=== PATIENT | female | born 1960 | race Caucasian/White ===

== ENCOUNTER 2023-04-22 00:37 | Emergency (ER) | payer MEDICARE, OTHER ==
[~2023-04-22] VITALS: Ht 162.5 cm; Wt 47.0 kg
[~2023-04-22 00:37] MED LIST: ALPR.5T PO; HYDR1TAB PO; KETO-22 PO; ONDAN4ODT PO; PNT40TEC PO; PROP10TA8 PO; SRTR100T PO
[2023-04-22 00:45] VITALS: BP 205/127
[2023-04-22 01:12] LABS: BASOPHILS % (AUTO) 1 % (0-10); EOSINOPHILS # (AUTO) 0.4 10^3/uL (0.0-0.3); EOSINOPHILS % (AUTO) 5 % (0-10); HEMATOCRIT 47 % (35-52); LYMPHOCYTES # (AUTO) 2.6 10^3/uL (1.0-4.0); LYMPHOCYTES % (AUTO) 33 % (12-44); MEAN CORPUSCULAR HEMOGLOBIN 30 pg (25-34); MEAN CORPUSCULAR HGB CONC 34 g/dL (32-36); MEAN CORPUSCULAR VOLUME 89 fL (80-99); MEAN PLATELET VOLUME 9.1 fL (9.0-12.2); MONOCYTES # (AUTO) 0.7 10^3/uL (0.0-1.0); MONOCYTES % (AUTO) 9 % (0-12); NEUTROPHILS # (AUTO) 4.2 10^3/uL (1.8-7.8); NEUTROPHILS % (AUTO) 53 % (42-75); PLATELET COUNT 276 10^3/uL (130-400); WHITE BLOOD COUNT 7.9 10^3/uL (4.3-11.0)
--- NOTE | 2023-04-22 01:18 | ED General ---
General Chief Complaint: Cardiac/General Problems Stated Complaint: HIGH BLOOD PRESSURE 226/106 Nursing Triage Note: Pt presents with c/o of HTN and not feeling well for approx 1 week. Pt states she's been having decreased appetite, diarrhea and fatigue. Pt reports feeling anxious tonight and having panic attacks over the past week. Source of Information: Patient (SOMEWHAT LIMITED/VAGUE HISTORIAN) History of Present Illness Date Seen by Provider: Apr 22, 2023 Time Seen by Provider: 00:54 Initial Comments PT ARRIVES VIA POV FROM HOME WITH DAUGHTER PT STATES SHE "JUST HASN'T FELT GOOD FOR THE LAST WEEK" STATES SHE HAS HAD ALOT OF ANXIETY LATELY AND HAVING PANIC ATTACKS LATELY ALSO C/O GENERALIZED FATIGUE, DECREASED APPETITE AND SOME DIARRHEA DAUGHTER WAS THERE TONIGHT, AND CHECKED HER BP JUST PRIOR TO ARRIVAL AND READINGS WERE 222/110 AND 226/106, SO CAME STRAIGHT HERE PT HAS NOT CHECKED HER BP AT ANY TIME UNTIL JUST PRIOR TO ARRIVAL PT IS SUPPOSED TO BE ON UNKNOWN BLOOD PRESSURE MEDICATION, BUT HAS NOT TAKEN ANY IN OVER A YEAR, AND HAS NOT SEEN A DR IN OVER A YEAR--STATES "NO INSURANCE" --PT GOES TO [facility]. DAUGHTER MADE HER COME HERE TONIGHT--PT STATES SHE DOES NOT LIKE GOING TO THE DR. HAS ALSO BEEN ON ANXIETY MEDICATIONS IN THE PAST, BUT ALSO NOT TAKEN ANY FOR OVER A YEAR NO CHEST PAIN NO PALPITATIONS NO SHORTNESS OF BREATH NO DIZZINESS NO SYNCOPE NO NAUSEA/VOMITING NO NEW VISION CHANGES--HAS GLAUCOMA NO PARESTHESIAS OR MOTOR DEFICITS NO HEADACHE NO SWELLING IN LEGS/FEET OR PAIN IN CALVES PT IS NOT COVID OR FLU VACCINATED NO KNOWN SICK CONTACTS PCP: DR. CARIDAD PICKARD AT [facility] Allergies and Home Medications Allergies Coded Allergies: prochlorperazine (Verified Allergy, Severe, FACIAL PARALYSIS, "EYES ROLL BACK IN HEAD", 11/13/05) Patient Home Medication List Home Medication List Reviewed: Yes Alprazolam (Xanax) 0.5 Mg Tablet, 0.5 MG PO HS, (Reported) Entered as Reported by: GRACE MONGE on 09/26/11 2105 Hydrocodone Bit/Acetaminophen (Vicodin 5-500 Tablet) 1 Each Tablet, 1-2 EACH PO Q4HR PRN, (Reported) Entered as Reported by: SARITHA RIVERA on 09/28/11 0939 Hydroxyzine Pamoate (Hydroxyzine Pamoate) 50 Mg Capsule, 50 MG PO Q6H PRN for ANXIETY Prescribed by: BETO MAGAÑA on 04/22/23 0342 Ketorolac Tromethamine (Toradol) 10 Mg Tablet, 10 MG PO Q6H PRN Prescribed by: BETO MAGAÑA on 09/26/112337 Ondansetron Hcl (Zofran Oral Dissolve) 4 Mg Tab, 4 MG PO Q4H Prescribed by: BETO MAGAÑA on 09/26/112337 Pantoprazole Sodium (Protonix) 40 Mg Tablet.dr, 1 TAB PO DAILY Prescribed by: BETO MAGAÑA on 09/26/112337 Propranolol Hcl (Inderal) 10 Mg Tablet, 30 MG PO DAILY, (Reported) Entered as Reported by: GRACE MONGE on 09/26/112104 Sertraline Hcl (Zoloft) 100 Mg Tab, 100 MG PO DAILY, (Reported) Entered as Reported by: GRACE MONGE on 09/26/112104 Review of Systems Review of Systems Constitutional: see HPI EENTM: no symptoms reported Respiratory: no symptoms reported Cardiovascular: see HPI; No chest pain, No edema, No palpitations, No syncope Gastrointestinal: see HPI; No abdominal pain; diarrhea, loss of appetite; No nausea, No vomiting Genitourinary: no symptoms reported Musculoskeletal: no symptoms reported Skin: no symptoms reported Psychiatric/Neurological: See HPI Hematologic/Lymphatic: No Symptoms Reported Immunological/Allergic: no symptoms reported Past Qadlcea-Qfvlvk-Drnqjo Hx Patient Social History Tobacco Use?: Yes Tobacco type used: Cigarettes Smoking Status: Current Everyday Smoker Use of E-Cig and/or Vaping dev: No Substance use?: No Alcohol Use?: No Immunizations Up To Date Influenza Vaccine Up-to-Date: No; Not Current Past Medical History Surgeries: Yes (BACK SURGERY 2006-LUMBAR LAMINECTOMY/DISCECTOMY) Appendectomy, Gallbladder, Hysterectomy, Oophorectomy, Orthopedic Respiratory: No Cardiac: Yes Hypertension Neurological: No 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, 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 Genitourinary: No Gastrointestinal: No Musculoskeletal: Yes Chronic Back Pain Endocrine: No HEENT: Yes Glaucoma Loss of Vision: Bilateral Psychosocial: Yes Sleep Difficulties, Anxiety Integumentary: No Blood Disorders: No Family Medical History SOCIAL HISTORY: -SMOKES 1 PPD -DENIES ETOH USE -DENIES DRUG USE PAST SURGICAL HISTORY: -CHOLECYSTECTOMY -APPENDECTOMY -HYSTERECTOMY / BILATERAL SALPINGO-OOPHORECTOMY -BACK SURGERY WITH LUMBAR DISCECTOMY AND DEONTE LAMINECTOMY 2005 Physical Exam Vital Signs Vital Signs - First Documented 04/22/23 00:45 Temp 36.6 Pulse 64 Resp 16 B/P (MAP) 205/127 (153) Capillary Refill : Less Than 3 Seconds Height, Weight, BMI Height: '" Weight: lbs. oz. 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 Norm as Tested Skin: Normal Color, Warm/Dry Progress/Results/Core Measures Suspected Sepsis SIRS Temperature: Pulse: 64 Respiratory Rate: 16 Laboratory Tests 04/22/23 01:02: White Blood Count 7.9 Blood Pressure 205 /127 Mean: 153 Laboratory Tests 04/22/23 01:02: Creatinine 0.87, INR Comment 1.0, Platelet Count 276, Total Bilirubin 0.7 Results/Orders Lab Results Laboratory Tests Test 04/22/23 01:02 04/22/23 01:15 Range/Units White Blood Count 7.9 4.3-11.0 10^3/uL Red Blood Count 5.32 H 3.80-5.11 10^6/uL Hemoglobin 16.0 11.5-16.0 g/dL Hematocrit 47 35-52 % Mean Corpuscular Volume 89 80-99 fL Mean Corpuscular Hemoglobin 30 25-34 pg Mean Corpuscular Hemoglobin Concent 34 32-36 g/dL Red Cell Distribution Width 11.9 10.0-14.5 % Platelet Count 276 130-400 10^3/uL Mean Platelet Volume 9.1 9.0-12.2 fL Immature Granulocyte % (Auto) 0 % Neutrophils (%) (Auto) 53 42-75 % Lymphocytes (%) (Auto) 33 12-44 % Monocytes (%) (Auto) 9 0-12 % Eosinophils (%) (Auto) 5 0-10 % Basophils (%) (Auto) 1 0-10 % Neutrophils # (Auto) 4.2 1.8-7.8 10^3/uL Lymphocytes # (Auto) 2.6 1.0-4.0 10^3/uL Monocytes # (Auto) 0.7 0.0-1.0 10^3/uL Eosinophils # (Auto) 0.4 H 0.0-0.3 10^3/uL Basophils # (Auto) 0.0 0.0-0.1 10^3/uL Immature Granulocyte # (Auto) 0.0 0.0-0.1 10^3/uL Prothrombin Time 13.2 12.2-14.7 SEC INR Comment 1.0 0.8-1.4 Activated Partial Thromboplast Time 20 L 24-35 SEC D-Dimer 1.84 H 0.00-0.49 UG/ML Sodium Level 138 135-145 MMOL/L Potassium Level 3.4 L 3.6-5.0 MMOL/L Chloride Level 102 98-107 MMOL/L Carbon Dioxide Level 23 21-32 MMOL/L Anion Gap 13 5-14 MMOL/L Blood Urea Nitrogen 13 7-18 MG/DL Creatinine 0.87 0.60-1.30 MG/DL Estimat Glomerular Filtration Rate 74 BUN/Creatinine Ratio 15 Glucose Level 102 70-105 MG/DL Calcium Level 9.9 8.5-10.1 MG/DL Corrected Calcium 8.5-10.1 MG/DL Magnesium Level 2.2 1.6-2.4 MG/DL Total Bilirubin 0.7 0.1-1.0 MG/DL Aspartate Amino Transf (AST/SGOT) 15 5-34 U/L Alanine Aminotransferase (ALT/SGPT) 17 0-55 U/L Alkaline Phosphatase 92 40-136 U/L Troponin I < 0.028 <0.028 NG/ML B-Type Natriuretic Peptide 121.1 H <100.0 PG/ML Total Protein 8.2 6.4-8.2 GM/DL Albumin 4.6 H 3.2-4.5 GM/DL TSH [place] Testing 1.09 0.35-4.94 UIU/ML Influenza Type A (RT-PCR) Not Detected Not Detecte Influenza Type B (RT-PCR) Not Detected Not Detecte SARS-CoV-2 RNA (RT-PCR) Detected H Not Detecte My Orders Orders - BETO MAGAÑA DO Ed Iv/Invasive Line Start (04/22/23 01:02) Ekg Tracing (04/22/23 01:02) Monitor-Rhythm Ecg Trace Only (04/22/23 01:02) Bnp Lander (04/22/23 01:02) Cbc And Automated Diff (04/22/23 01:02) Comprehensive Metabolic Panel (04/22/23 01:02) Magnesium (04/22/23 01:02) Protime With Inr (04/22/23 01:02) Partial Thromboplastin Time (04/22/23 01:02) Thyroid Analyzer (04/22/23 01:02) Troponin I Lander (04/22/23 01:02) Chest 1 View, Ap/Pa Only (04/22/23 01:02) Covid 19 Inhouse Test (04/22/23 01:02) Influenza A And B By Pcr (04/22/23 01:02) Aspirin Chewable Tablet (Aspirin Chewabl (04/22/23 01:45) Nitroglycerin Ointment (Nitroglycerin (04/22/23 01:45) Fibrin Degradation Products (04/22/23 01:44) Ct Angio Chest W (R/O Pe) (04/22/23 01:57) Hydralazine Injection (Hydralazine Injec (04/22/23 02:00) Iohexol Injection (Omnipaque 350 Mg/Ml 1 (04/22/23 02:45) Received Contrast (Hold Metformin- Contr (04/22/23 02:45) Ns (Ivpb) 100 Ml (Sodium Chloride 0.9% 1 (04/22/23 02:45) Lorazepam Injection (Lorazepam Injection (04/22/23 02:45) Medications Given in ED Current Medications Medications Dose Ordered Sig/Nelsy Route Start Time Stop Time Status Last Admin Dose Admin Aspirin 324 mg ONCE ONCE PO 04/22/23 01:45 04/22/23 01:47 DC 04/22/23 01:40 324 MG Hydralazine HCl 10 mg ONCE ONCE IV 04/22/23 02:00 04/22/23 02:01 DC 04/22/23 02:10 10 MG Iohexol 100 ml ONCE ONCE IV 04/22/23 02:45 04/22/23 02:52 DC 04/22/23 02:41 52 ML Lorazepam 2 mg ONCE ONCE IVP 04/22/23 02:45 04/22/23 02:46 DC 04/22/23 02:54 1 MG Nitroglycerin 1 inch ONCE ONCE TOP 04/22/23 01:45 04/22/23 01:47 DC 04/22/23 01:40 1 INCH Sodium Chloride 100 ml ONCE ONCE IV 04/22/23 02:45 04/22/23 02:52 DC 04/22/23 02:41 62 ML Vital Signs/I&O 04/22/23 00:45 Temp 36.6 Pulse 64 Resp 16 B/P (MAP) 205/127 (153) Capillary Refill : Less Than 3 Seconds Blood Pressure Mean: 153 Progress Note : Progress Note VITALS ON ARRIVAL: TEMP 36.6=97.8, HR 64, RR 16, BP 205/127, O2 SAT 99% ON ROOM AIR GIVEN: -ASPIRIN -NITROPASTE -HYDRALAZINE -ATIVAN LABS: -CBC NORMAL -CMP K 3.4, OTHERWISE NORMAL -MG NORMAL -TROPONIN NEGATIVE -BNP 121 -PT/PTT/INR NORMAL -D-DIMER 1.84 -TSH NORMAL -COVID POSITIVE -FLU NEGATIVE EKG WITH ANTERIOR LATERAL ST DEPRESSION AND T WAVE INVERSION, CHANGED FROM [address] CHEST ANGIOGRAM--NO P.E. OR ACUTE PROCESS PT IS OUTSIDE TREATMENT WINDOW FOR COVID PT BECAME VERY ANXIOUS IN CT SCAN, AND BP BACK UP TO 205/[address] ATIVAN ORDERED AT THIS TIME. PT HYPERVENTILATING AND VAGAL-ED DOWN, AND HR AND BP DROPPED PRIOR TO BEING GIVEN ATIVAN. NITROPASTE REMOVED BP UP TO 126/88 WHEN NITROPASTE REMOVED. PT IS MUCH CALMER. VITALS AT DISMISSAL, HR 57-62, BP 118/84, O2 SAT 97% ON ROOM AIR PT IS SYMPTOM-FREE DISCUSSED TEST RESULTS, ANTICIPATED COURSE, SYMPTOMATIC TREATMENT, IMPORTANCE OF FOLLOW UP AND RETURN PRECAUTIONS REVIEWED PRIOR RECORDS, INCLUDING ER VISITS, ADMITS/H&P'S/CONSULTS/DISCHARGE SUMMARIES, TESTS/PROCEDURES ECG Initial ECG Impression Date: Apr 22, 2023 Initial ECG Impression Time: 01:14 Initial ECG Rate: 56 Initial ECG Rhythm: Normal Sinus (ST DEPRESSION AND T WAVE INVERSION ANTERIOR/LATERALLY) Initial ECG Intervals RI 153 QRS 98 QT/QTC 473/464 Initial ECG Comparisson: Changed (CHANGED FROM 2011) Comment INTERPRETED BY ME Diagnostic Imaging Comments CXR--PENDING RADIOLOGIST REVIEW - NO ACUTE PROCESS CT CHEST ANGIOGRAM--PER [facility] VIA FAX AT 0330 -NO P.E. OR ACUTE PROCESS -MODERATE CENTRILOBAR EMPHYSEMA Reviewed: Reviewed by Me Departure Communication (Admissions) 0336--SPOKE WITH DR. MAZARIEGOS, HOSPITALIST FOR [facility]. ADVISES TO SEND PT HOME AND FOLLOW UP IN CLINIC. Impression Primary Impression: Hypertensive urgency Additional Impressions: Abnormal EKG Non-compliance Smoker COVID 9 VIRUS INFECTION Anxiety Disposition: HOME, SELF-CARE Condition: Improved Departure-Patient Inst. Decision time for Depature: 03:40 Referrals: [facility] Patient Instructions: Anxiety, Adult ED, Quitting Smoking ED, DASH Diet, High Blood Pressure (DC) Add. Discharge Instructions: FOLLOW UP WITH [facility] TOMORROW FOR FURTHER CARE RETURN TO ER IF YOUR SYMPTOMS WORSEN All discharge instructions reviewed with patient and/or family. Voiced understanding. Scripts Hydroxyzine Pamoate (Hydroxyzine Pamoate) 50 Mg Capsule 50 MG PO Q6H PRN for ANXIETY, #15 CAP Prov: BEOT MAGAÑA DO 04/22/23 BETO MAGAÑA DO Apr 22, 2023 01:18
[2023-04-22 01:27] LABS: ALBUMIN 4.6 GM/DL (3.2-4.5); CHLORIDE 102 MMOL/L (98-107); POTASSIUM 3.4 MMOL/L (3.6-5.0); SODIUM 138 MMOL/L (135-145)
[2023-04-22 01:28] LABS: CALCIUM 9.9 MG/DL (8.5-10.1)
[2023-04-22 01:29] LABS: GLUCOSE 102 MG/DL (70-105)
[2023-04-22 01:30] LABS: TOTAL PROTEIN 8.2 GM/DL (6.4-8.2)
[2023-04-22 01:31] LABS: BILIRUBIN,TOTAL 0.7 MG/DL (0.1-1.0); CARBON DIOXIDE 23 MMOL/L (21-32); PROTHROMBIN TIME PATIENT 13.2 SEC (12.2-14.7)
[2023-04-22 01:33] LABS: ALKALINE PHOSPHATASE 92 U/L (40-136); CREATININE SERUM 0.87 MG/DL (0.60-1.30); GFR ESTIMATED 74
[2023-04-22 01:34] LABS: BUN/CREATININE RATIO 15
[2023-04-22 01:36] LABS: ALANINE AMINOTRANSFERASE 17 U/L (0-55); MAGNESIUM 2.2 MG/DL (1.6-2.4)
[2023-04-22] MEDS ORDERED: ASPIRIN 81 MG CHEWABLE TABLET PO ONE (01:45)
[2023-04-22] MEDS ORDERED: NITROGLYCERIN 2% OINT 1 GM UNIT DOSE PACKET TOP ONE (01:45)
[2023-04-22 01:57] LABS: TSH (THYROID ANALYZER) 1.09 UIU/ML (0.35-4.94)
[2023-04-22] MEDS ORDERED: hydrALAZINE INJECTION 20 MG/ML VIAL IV ONE (02:00)
[2023-04-22] MEDS ORDERED: NS 100 ML (IVPB) BAG IV ONE (02:45)
[2023-04-22] MEDS ORDERED: HOLD METFORMIN - RECEIVED CONTRAST 20 ML VIAL IV SCH (02:45)
[2023-04-22] MEDS ORDERED: IOHEXOL 350 MG/ML 100 ML (OMNIPAQUE 350) VIAL IV ONE (02:45)
[2023-04-22] MEDS ORDERED: HYDR50CA3 PO (03:42)
--- NOTE | 2023-04-22 06:39 | Diagnostic Imaging Report ---
EXAMINATION: Chest 1 view HISTORY: Hypertension COMPARISON: None available. FINDINGS: Heart size and pulmonary vasculature are normal. The lungs are clear without consolidation, pleural effusion, or pneumothorax. The osseous structures are intact. IMPRESSION: 1. No acute radiographic abnormality in the chest. Dictated by: Dictated on workstation # [id number]
--- NOTE | 2023-04-22 06:51 | Diagnostic Imaging Report ---
EXAM: CT ANGIO CHEST W (R/O PE) INDICATION: Shortness of breath. COVID positive. Hypertension. COMPARISON: Chest radiograph 04/22/2023. FINDINGS: Examination is mildly limited by motion. No large or central pulmonary emboli. Normal caliber thoracic aorta. Normal heart size. No lymphadenopathy. Advanced emphysema. No pleural effusion or pneumothorax. No acute osseous findings. Cholecystectomy. IMPRESSION: 1. No large or central pulmonary emboli. 2. Advanced emphysema. No significant change from preliminary interpretation. Dictated by: Dictated on workstation # [id number]
== END 2023-04-22 04:08 | disposition home or self-care (01) ==
LOC: EDUNIT# 00:37 → ER 00:42
DX: U07.1 COVID-19 (principal); I16.0 Hypertensive urgency; F41.9 Anxiety disorder, unspecified; R94.31 Abnormal electrocardiogram [ECG] [EKG]; F17.210 Nicotine dependence, cigarettes, uncomplicated; Z91.199 Patient's noncompliance with other medical treatment and regimen due to unspecified reason
CPT/HCPCS: 36415; 71045; 71275; 80053; 83735; 83880; 84443; 84484; 85025; 85379; 85610; 85730; 87636; 93005; 93041